=== PATIENT | male | born 2000 | race African-American/Black ===

== ENCOUNTER 2018-05-17 13:31 | Emergency (ER) | payer MEDICAID ==
[~2018-05-17] VITALS: Ht 193 cm; Wt 100.0 kg
[2018-05-17 13:36] VITALS: BP 132/87
[2018-05-17] MEDS ORDERED: ALBU18HF2 IH (13:38)
== END 2018-05-17 18:27 | disposition left against medical advice (07) ==
LOC: ER 13:31
DX: Z53.21 Procedure and treatment not carried out due to patient leaving prior to being seen by health care provider (principal)